=== PATIENT | female | born 1995 ===

== ENCOUNTER 2023-06-20 22:05 | Day surgery (SDC) | payer BC ==
[2023-06-20] MEDS ORDERED: hydrALAZINE 20 MG/ML VIAL SLOW IVP PRN (22:21)
[2023-06-20 22:37] VITALS: BMI 33.7
[2023-06-20 22:51] LABS: Bilirubin Neg (Negative); Blood, Urine Negative (Negative); Clarity Slightly Cloudy (Clear); Glucose, Urine (Dipstick) >=1000 mg/dL (Negative); Ketone, Urine 5 mg/dL (Negative); Leukocyte 500 (Negative); Nitrite Negative (Negative); Protein, Urine (Dipstick) 15 mg/dl (Neg-Trace); Urobilinogen Normal mg/dL (Less than 2)
[2023-06-20 23:12] LABS: RBC/HPF 0-3 HPF (0-3)
[2023-06-20 23:13] LABS: CAUTI Indications for Culture Pregnancy; Squamous Epithelial 0-3 HPF (0-3)
[2023-06-20 23:14] LABS: Bacteria/HPF None Seen HPF (None Seen)
[2023-06-20 23:16] LABS: Urine Culture Reflex Yes Yes
== END 2023-06-20 23:35 | disposition home or self-care (01) ==
LOC: CSHLD/OP 22:05
PROVIDERS: ATTEND Student in an Organized Health Care Education/Training Program
DX: O99.891 Other specified diseases and conditions complicating pregnancy (principal); R10.2 Pelvic and perineal pain; O99.283 Endocrine, nutritional and metabolic diseases complicating pregnancy, third trimester; E74.39 Other disorders of intestinal carbohydrate absorption; O99.810 Abnormal glucose complicating pregnancy; Z79.899 Other long term (current) drug therapy; Z3A.30 30 weeks gestation of pregnancy
CPT/HCPCS: 81001; 87086; 99283